=== PATIENT | female | born 1970 | race Caucasian/White ===

== ENCOUNTER 2023-05-27 05:59 | Day surgery (SDC) | payer BC ==
[2023-05-24 12:00] VITALS: BMI 22.5
[2023-05-27] MEDS ORDERED: Gentamicin 80 MG/2 ML VIAL ONE ×2 (06:46→07:55)
[2023-05-27] MEDS ORDERED: Lidocaine 1% (PF) 30 ML VIAL ONE (06:46)
[2023-05-27] MEDS ORDERED: Vancomycin 1 GM VIAL ONE (06:46)
[2023-05-27] MEDS ORDERED: EPINEPHrine 1 MG/ML AMP ONE (06:46)
[2023-05-27] MEDS ORDERED: Bupivacaine 0.25% HCL 30 ML VIAL ONE (06:46)
[2023-05-27] MEDS ORDERED: fentaNYL PF 100 MCG/2 ML SYRINGE ONE (07:03)
[2023-05-27] MEDS ORDERED: Dexmedetomidine 200 MCG/2 ML VIAL ONE (07:03)
[2023-05-27] MEDS ORDERED: Midazolam HCl 2 mg/2 ml Vial ONE (07:18)
[2023-05-27] MEDS ORDERED: Heparin 5,000 UNITS/ML VIAL ONE (07:20)
[2023-05-27] MEDS ORDERED: CEFAZOLIN 2 GM VIAL ONE (07:20)
[2023-05-27] MEDS ORDERED: Sodium Chloride 0.9% 100 ML ONE (07:20)
[2023-05-27] MEDS ORDERED: PROPOFOL 200 MG/20 ML VIAL ONE (07:36)
[2023-05-27] MEDS ORDERED: Ondansetron PF 4 MG/2 ML Vial ONE (07:36)
[2023-05-27] MEDS ORDERED: ePHEDrine Sulfate 50 MG/10 ML VIAL ONE (07:36)
[2023-05-27] MEDS ORDERED: Lidocaine 1% PF 5 ML VIAL ONE (07:36)
[2023-05-27] MEDS ORDERED: Dexamethasone 20 MG/5 ML VIAL ONE (07:36)
[2023-05-27] MEDS ORDERED: fentaNYL 50 mcg/mL 1 mL Vial ONE (09:57)
== END 2023-05-27 11:55 | disposition home or self-care (01) ==
LOC: SDC 05:59
PROVIDERS: ATTEND Plastic Surgery
PROC: 0HBT0ZZ Excision of Right Breast, Open Approach (ICD-10-PCS; principal; 2023-05-27)
DX: N65.1 Disproportion of reconstructed breast (principal); Z85.3 Personal history of malignant neoplasm of breast
CPT/HCPCS: 88305; J0171; J1100; J1580; J1644; J2001; J2250; J2405; J2704; J3010; J3370; J3490; S0020